=== PATIENT | female | born 1995 | race Two or more races ===

== ENCOUNTER 2018-08-04 07:58 | Inpatient (IN) | payer OTHER ==
[~2018-08-04] VITALS: Ht 162.6 cm; Wt 75.3 kg
[2018-08-04] MEDS ORDERED: PRENATAL FORMU1 EAC2 PO (10:14)
== END 2018-08-06 16:24 | DRG 807 ==
LOC: OB/GYN 07:58 → LDR 07:58 → OB/GYN 20:04
PROC: 10E0XZZ Delivery of Products of Conception, External Approach (ICD-10-PCS; principal; 2018-08-04)
PROC: 4A1HXCZ Monitoring of Products of Conception, Cardiac Rate, External Approach (ICD-10-PCS; 2018-08-04)
DX: O80 Encounter for full-term uncomplicated delivery (principal); Z37.0 Single live birth; Z3A.39 39 weeks gestation of pregnancy

== ENCOUNTER 2022-08-20 08:43 | Inpatient (IN) | payer OTHER ==
[~2022-08-20] VITALS: Ht 162.6 cm; Wt 73.0 kg
[~2022-08-20 08:43] MED LIST: PRENATAL FORMU1 EAC2 PO
[2022-08-20] MEDS ORDERED: PRENATAL TABLE1 EAC1 PO (10:49)
== END 2022-08-22 14:16 | disposition home or self-care (01) | DRG 807 ==
LOC: LDR 08:43 → OB/GYN 08:43
PROVIDERS: ADMIT Obstetrics & Gynecology; ATTEND Obstetrics & Gynecology
PROC: 10E0XZZ Delivery of Products of Conception, External Approach (ICD-10-PCS; principal; 2022-08-20)
PROC: 4A1HXCZ Monitoring of Products of Conception, Cardiac Rate, External Approach (ICD-10-PCS; 2022-08-20)
DX: O80 Encounter for full-term uncomplicated delivery (principal); Z37.0 Single live birth; Z3A.39 39 weeks gestation of pregnancy; Z20.822 Contact with and (suspected) exposure to COVID-19

== ENCOUNTER 2024-06-01 16:20 | Outpatient (CLI) | payer OTHER ==
[~2024-06-01 16:20] MED LIST changes: +PRENATAL TABLE1 EAC1 PO
== END 2024-06-01 16:21 | disposition home or self-care (01) ==
LOC: PRENATAL 16:20
PROVIDERS: ATTEND Obstetrics & Gynecology Maternal & Fetal Medicine
DX: O35.3XX0 Maternal care for (suspected) damage to fetus from viral disease in mother, not applicable or unspecified (principal); O44.00 Complete placenta previa NOS or without hemorrhage, unspecified trimester; Z3A.20 20 weeks gestation of pregnancy

== ENCOUNTER 2024-10-12 09:22 | Inpatient (IN) | payer OTHER ==
[~2024-10-12] VITALS: Ht 162.6 cm; Wt 74.8 kg
[2024-10-12] VITALS (10 sets, daily range): BP systolic 109–123; BP diastolic 61–74; O2SAT 98
[2024-10-12 11:32] LABS: HEMATOCRIT 34.6 % (36.0-45.00); HEMOGLOBIN 11.3 g/dL (12.0-15.00); MEAN CELL VOLUME 86.7 fL (80.00-100.00); MEAN CORPUSCULAR HEMOGLOBIN 28.3 pg (27.00-32.0); MEAN CORPUSCULAR HGB CONC 32.6 g/dl (32.0-36.0); PLATELET COUNT 286 K/uL (150-450); RED BLOOD COUNT 3.99 M/uL (4.00-6.00); RED CELL DISTRIBUTION WIDTH 14.3 % (11.5-14.5); URINE APPEARANCE Clear; URINE BILIRRUBIN Negative (NEGATIVE); URINE BLOOD Negative; URINE COLOR Yellow; URINE GLUCOSE Negative (NEGATIVE); URINE KETONE 15 (NEGATIVE); URINE LEUKOCYTE Trace; URINE NITRATE Negative; URINE PROTEIN Negative (NEGATIVE)
[2024-10-12 11:33] LABS: URINE BACTERIA 504.2 uL (0.0-1933); URINE RBC 12.3 uL (0.0-20.8); URINE WBC 19.9 uL (0.0-23.2)
[2024-10-12 11:49] LABS: INR 0.95; PARTIAL THROMBOPLASTIN TIME 26.2 SECONDS (22.0-34.0); PROTHROMBIN TIME 10.4 SECONDS (9.0-11.5)
[2024-10-12] MEDS ORDERED: OXYTOCIN 20 UNITS/500ML RL PIGGYBAG IV SCH (12:00)
[2024-10-12] MEDS ORDERED: RINGERS SOLUTION,LACTATED 1,000 ML IV SCH (13:00)
[2024-10-12 13:51] LABS: URINE CAST 0.14 uL (0.0-1.40)
[2024-10-12] MEDS ORDERED: LIDOCAINE HCL 1% 10ML VIAL ONE ×2 (17:19→17:22)
[2024-10-12] MEDS ORDERED: ERYTHROMYCIN BASE OPHT 1GM EACH TUBE OP ONE ×3 (17:19→19:15)
[2024-10-12] MEDS ORDERED: CHLORHEXIDINE GLUCONATE 120 ML BOTTLE TOP ONE ×3 (17:19→19:15)
[2024-10-12] MEDS ORDERED: OXYTOCIN 20 UNITS/1000ML RL PIGGYBAG IV ONE ×2 (17:19→17:23)
[2024-10-12] MEDS ORDERED: ACETAMINOPHEN 500 MG GEL..CAP PO PRN (19:15)
[2024-10-12] MEDS ORDERED: OXYTOCIN 1,000 ML IV SCH ×2 (19:15)
[2024-10-12 23:16] LABS: HEMATOCRIT 36.9 % (36.0-45.00); HEMOGLOBIN 12.1 g/dL (12.0-15.00); MEAN CELL VOLUME 86.3 fL (80.00-100.00); MEAN CORPUSCULAR HEMOGLOBIN 28.4 pg (27.00-32.0); MEAN CORPUSCULAR HGB CONC 32.9 g/dl (32.0-36.0); PLATELET COUNT 270 K/uL (150-450); RED BLOOD COUNT 4.27 M/uL (4.00-6.00); RED CELL DISTRIBUTION WIDTH 14.5 % (11.5-14.5)
[2024-10-13 03:26] VITALS: BP 115/68
[2024-10-13 03:27] VITALS: BP 115/68
[2024-10-13 08:10] VITALS: BP 128/65
[2024-10-13] MEDS ORDERED: PNV,CALCIUM 72/IRON/FOLIC ACID 1 TAB TABLET PO SCH (09:00)
[2024-10-13 15:54] VITALS: BP 101/66
[2024-10-14 02:00] VITALS: BP 116/75
[2024-10-14 08:00] VITALS: BP 114/66
== END 2024-10-14 17:21 | disposition home or self-care (01) | DRG 788 ==
LOC: OB/GYN 09:22 → LDR 09:22 → O/R 10:05 → LDR 10:06 → OB/GYN 18:12
PROVIDERS: ADMIT Obstetrics & Gynecology; ATTEND Obstetrics & Gynecology
PROC: 10D00Z1 Extraction of Products of Conception, Low, Open Approach (ICD-10-PCS; principal; 2024-10-12)
PROC: 4A1HXCZ Monitoring of Products of Conception, Cardiac Rate, External Approach (ICD-10-PCS; 2024-10-12)
DX: O80 Encounter for full-term uncomplicated delivery (principal); Z3A.39 39 weeks gestation of pregnancy; Z37.0 Single live birth